=== PATIENT | female | born 1975 | race Caucasian/White ===

== ENCOUNTER 2018-10-05 17:28 | Emergency (ER) | payer BC ==
[~2018-10-05] VITALS: Ht 160 cm; Wt 111.1 kg
[2018-10-05] MEDS ORDERED: TEGRETOL200 MG (17:58)
[2018-10-05] MEDS ORDERED: FLONASE16 GM (17:59)
== END 2018-10-05 20:30 | disposition home or self-care (01) ==
LOC: ER 17:28
DX: M94.0 Chondrocostal junction syndrome [Tietze] (principal); K21.9 Gastro-esophageal reflux disease without esophagitis